=== PATIENT | male | born 1975 ===

== ENCOUNTER 2017-04-20 17:45 | Emergency (ER) | payer SELFPAY ==
[2017-04-20 17:55] VITALS: BP 148/90; PULSE 62; RESP 18; TEMP 97.5; O2SAT 98
--- NOTE | 2017-04-20 18:20 | ED PDOC ---
HPI: Male Pain Time Seen by Provider: 04/20/17 18:03 Chief Complaint (Nursing): Male Genitourinary Chief Complaint (Provider): Male Genitourinary History Per: Patient History/Exam Limitations: no limitations Onset/Duration Of Symptoms: Days (x4) Current Symptoms Are (Timing): Still Present Additional Complaint(s): Nigel King is a 42 year old male with a history of diabetes that presents to the ED with a chief complaint of burning dysuria that he has been experiencing for the past four days. Patient denies any hematuria or discharge, and states that he was recently checked for STDs and does not have any. Of Note: Patient also reports a sebaceous cyst on his left foot. Past Medical History Reviewed: Historical Data, Nursing Documentation, Vital Signs Vital Signs: Last Vital Signs Temp 97.5 F L 04/20/17 17:52 Pulse 62 04/20/17 17:52 Resp 18 04/20/17 17:52 BP 148/90 04/20/17 17:52 Pulse Ox 98 04/20/17 17:52 - Medical History PMH: Diabetes Denies: HIV, Chronic Kidney Disease - Family History Family History: States: Unknown Family Hx - Home Medications Home Medications: Ambulatory Orders Medication Instructions Recorded Gabapentin [Neurontin] 100 mg PO BID 30 Days 03/29/15 GlipiZIDE [Glucotrol] 5 mg PO BID 30 Days 03/29/15 Insulin Aspart [Novolog FLEXPEN] 2 unit SC ACTID #30 ml 03/29/15 oxyCODONE/Acetaminophen [Percocet 1 tab PO Q6 PRN #10 tab 08/15/16 5/325 mg Tab] Doxycycline Hyclate [Doryx] 100 mg PO BID #20 cap 04/20/17 - Allergies Allergies/Adverse Reactions: Allergies Allergy/AdvReac Type Severity Reaction Status Date / Time No Known Allergies Allergy Verified 04/20/17 17:52 Review of Systems Genitourinary Male: Positive for: Dysuria (burning, x4 days). Negative for: Hematuria, Penile Discharge Musculoskeletal: Positive for: Other (cyst present on left foot) Physical Exam - Reviewed Nursing Documentation Reviewed: Yes Vital Signs Reviewed: Yes - Physical Exam Appears: Positive for: Non-toxic, No Acute Distress Head Exam: Positive for: ATRAUMATIC, NORMOCEPHALIC Skin: Positive for: Normal Color, Warm Male Genital Exam: Positive for: other (Patient deferred genital exam) Extremity: Positive for: Normal ROM, Other (Nontender, firm, mobile mass to dorsal aspect of left foot over fifth metatarsal, consistent with Ganglian cyst. ). Negative for: Tenderness Neurologic/Psych: Positive for: Alert, Oriented. Negative for: Motor/Sensory Deficits - ECG O2 Sat by Pulse Oximetry: 98 (RA) Pulse Ox Interpretation: Normal Medical Decision Making Medical Decision Making: Impression: Burning Dysuria Plan: * Urine Dipstick * Reevaluation Discussed cyst present on patient's left foot, referred him to [employer] service supervisor for further workup. Pt declined GC/C again when offered. Dip (+) Nites and leuks. Pt educated on results, as well as potential causes. Started on Doxy PO. Scribe Attestation: Documented by Barbie Newby, acting as a scribe for Edwige Doan PA-C. Provider Scribe Attestation: All medical record entries made by the Scribe were at my direction and personally dictated by me. I have reviewed the chart and agree that the record accurately reflects my personal performance of the history, physical exam, medical decision making, and the department course for this patient. I have also personally directed, reviewed, and agree with the discharge instructions and disposition. Disposition - Clinical Impression Clinical Impression: Urinary tract infection - Patient ED Disposition Is Patient to be Admitted: No - Disposition Referrals: Jaiden Ladd MD [Staff Provider] - Disposition: Routine/Home Disposition Time: 18:59 Condition: STABLE Prescriptions: Doxycycline Hyclate [Doryx] 100 mg PO BID #20 cap Instructions: Urinary Tract Infection in Men (ED) Forms: [employer] (Russian) - POA Present On Arrival: None
== END 2017-04-20 20:03 | disposition home or self-care (01) ==
LOC: H.ER 17:45
DX: N39.0 Urinary tract infection, site not specified (principal); E11.9 Type 2 diabetes mellitus without complications; Z79.4 Long term (current) use of insulin

== ENCOUNTER 2017-06-20 10:51 | Day surgery (SDC) | payer SELFPAY ==
[2017-06-20 11:09] VITALS: BMI 29.2
[2017-06-20 11:39] LABS: HEMATOCRIT 41.4 % (35.0-51.0); MEAN CELL VOLUME 87.3 fl (80.0-94.0); MEAN CORPUSCULAR HEMOGLOBIN 29.9 pg (27.0-31.0); MEAN CORPUSCULAR HGB CONC 34.3 g/dL (33.0-37.0); RED CELL DISTRIBUTION WIDTH 13.2 % (11.5-14.5); WHITE BLOOD COUNT 5.6 K/uL (4.8-10.8)
[2017-06-20 11:54] LABS: PARTIAL THROMBOPLASTIN TIME 30.8 Seconds (25.6-37.1)
[2017-06-20] MEDS ORDERED: Absorbable Gelatin Sponge Size 12-7 ONE (12:45)
[2017-06-20] MEDS ORDERED: Lidocaine 1% Inj (20ml) ONE (12:45)
[2017-06-20] MEDS ORDERED: Midazolam 2 MG/2 ML VIAL ONE (13:08)
--- NOTE | 2017-06-20 13:10 | CP.SDSHP ---
Same Day Surgery H & P - History Proposed Procedure: US guided biopsy of liver Pre-Op Diagnosis: hepatic steatosis - Allergies Allergies: Allergies No Known Allergies Allergy (Verified 04/20/17 17:52) - Physical Exam Vital Signs: Vital Signs 06/20/17 06/20/17 11:36 11:44 Temperature 97.9 F Pulse Rate 54 L 54 L Respiratory 18 Rate Blood Pressure 132/87 O2 Sat by Pulse 96 Oximetry Mental Status: Alert & Oriented x3 Neuro: WNL Heart: WNL Lungs: WNL GI: WNL - {Optional Preform as Required} Abdomen: WNL - Impression Impression: Pt with hepatic steatosis refered for biopsy of liver. Plan US guided liver biopsy. Informed consent obtained. Pt. Evaluated Today:Candidate for Anesthesia & Procedure: Yes (ASA 2 Malampati 2) - Date & Time Date: 06/20/17 Time: 13:00 Short Stay Discharge - Short Stay Discharge Admitting Diagnosis/Reason for Visit: HEPATIC STEATOSIS, ABNORMAL LFT'S Referrals: Analia Payton MD [Primary Care Provider] -
[2017-06-20 13:18] VITALS: O2SAT 100
[2017-06-20] MEDS ORDERED: Lactated Ringer's 500 ML IV ONE (13:25)
[2017-06-20 13:34] VITALS: RESP 18
--- NOTE | 2017-06-20 14:27 | PCM.SURG1 ---
Surgeon's Initial Post Op Note - Surgeon's Notes Surgeon: Dewey Falcon MD Residential Program Director: NONE Type of Anesthesia: IV Sedation Pre-Operative Diagnosis: Hepatosteatosis Operative Findings: US showed an unremarkable left liver Post-Operative Diagnosis: Fatty liver Operation Performed: US guided core biopsy. Three 18-g core specimen obtained. Biopsy tract embolized with gelfoam. Specimen/Specimens Removed: 18 gauge core x 3 Estimated Blood Loss: EBL {In ML}: 1 Blood Products Given: N/A Drains Used: No Drains Post-Op Condition: Good Date of Surgery/Procedure: 06/20/17 Time of Surgery/Procedure: 14:00
[2017-06-20] MEDS ORDERED: Sodium Chloride 0.45% 1,000 ML IV SCH (14:30)
[2017-06-20 15:50] VITALS: BP 128/86; PULSE 52; TEMP 97.8
--- NOTE | 2017-06-22 15:20 | US ---
PROCEDURE: Date of procedure: 06/20/2017 Procedure: 1. Ultrasound-guided core liver biopsy, CPT 31960 2. Ultrasound guidance for biopsy, [address] Medications: The patient is sedated by the anesthesiologist. HISTORY: Abnormal LFTs TECHNIQUE: Following informed consent and procedure time-out, the patient was placed supine on bed and limited ultrasound showed a normal appearing left hepatic lobe. After patient abdomen was prepped and draped in the usual sterile fashion and the skin was anesthetized with 2% lidocaine, an 18 gauge core needle was advanced percutaneously under direct ultrasound guidance into the left hepatic lobe. Upon confirmation of needle position, three 18 gauge core specimens were obtained and sent for routine pathology. The biopsy to tract was then embolized with Gelfoam. A post biopsy ultrasound showed no hematoma. A dressing was applied. IMPRESSION: Ultrasound-guided core biopsy left hepatic lobe. There were no immediate complications.
== END 2017-06-20 15:50 | disposition home or self-care (01) ==
LOC: H.OPSURG 10:51
PROVIDERS: ATTEND Family Medicine Geriatric Medicine
DX: K76.89 Other specified diseases of liver (principal)
CPT/HCPCS: 36415; 47000; 82948; 85027; 85610; 85730; 88307; J2250; J3010; J7120

== ENCOUNTER 2017-12-20 10:01 | Day surgery (SDC) | payer SELFPAY ==
[2017-12-20] MEDS ORDERED: Lactated Ringer's 500 ML IV ONE (10:38)
[2017-12-20 10:51] VITALS: TEMP 97
[2017-12-20] MEDS ORDERED: Propofol 10 mg/ml Inj (20 ML) ONE (11:07)
[2017-12-20] MEDS ORDERED: Lidocaine PF 2% (5 ml) Inj (For Cardiac Arrhy) IV ONE (11:07)
[2017-12-20] MEDS ORDERED: Midazolam 2 MG/2 ML VIAL ONE (11:07)
[2017-12-20 12:07] VITALS: BP 112/73; PULSE 53; RESP 15; O2SAT 99
== END 2017-12-20 12:08 | disposition home or self-care (01) ==
LOC: H.ENDO 10:01
PROVIDERS: ATTEND Internal Medicine Gastroenterology
DX: K30 Functional dyspepsia (principal); E11.9 Type 2 diabetes mellitus without complications; K29.70 Gastritis, unspecified, without bleeding
CPT/HCPCS: 43239; 82948; 88305; J2250; J2704; J3010; J7120

== ENCOUNTER 2018-01-18 15:09 | Emergency (ER) | payer SELFPAY ==
[2018-01-18 15:09] VITALS: BMI 29.2
[2018-01-18 15:20] VITALS: O2SAT 98
[2018-01-18] MEDS ORDERED: Sodium Chloride 0.9% 1,000 ML IV STA (16:11)
[2018-01-18] MEDS ORDERED: Iohexol 240 (50 ml) PO ONE (16:14)
[2018-01-18] MEDS ORDERED: Iohexol 240 (50 ml) ONE (16:29)
--- NOTE | 2018-01-18 16:51 | ED PDOC ---
HPI: Abdomen Chief Complaint (Provider): abdominal pain History Per: Patient History/Exam Limitations: no limitations Onset/Duration Of Symptoms: Days (2) Outside of [place] travel?: No Current Symptoms Are (Timing): Still Present Severity: Moderate Pain Scale Rating Of: 7 Location Of Pain/Discomfort: Epigastric, Periumbilical Quality Of Discomfort: Aching, Cramping Associated Symptoms: Chills, Nausea, Vomiting. denies: Fever, Diarrhea, Constipation Exacerbating Factors: None Alleviating Factors: Other (passing gas, vomiting) Last Bowel Movement: Today (was normal) <Rehana Saavedra - Last Filed: 01/18/18 17:04> <Paulie Trinidad - Last Filed: 01/18/18 17:11> Time Seen by Provider: 01/18/18 15:45 Chief Complaint (Nursing): Abdominal Pain Additional Complaint(s): 42 yr old M presents to ED with complaint of abdominal pain and overall malaise for 2 days. PMHx includes NIDDM, gastritis, dyspepsia, hepatic steatosis and recent H. Pylori infection dx via upper endoscopy. Patient reports abdominal pain is located in periumbilical and epigastric area, 7/10, crampy, alleviated by passing gas and vomiting. Not exacerbated by anything. Associated symptoms are nausea, vomiting 3 times today-last episode after eating biscuits, tortillas and rice. He is on day 04/01 of antibiotics for H.Pylori infection. Denies diarrhea, constipation, syncope or weakness. 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 Reports normal urine and stool output. PMD: Dr. Johnson ([facility]) PMHx: NIDDM, gastritis, dyspepsia, hepatic steatosis and recent H. 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 Pylori day 04/01 Allergies: NKDA (Rehana Saavedra) Supervising Attending Note <Rehana Saavedra - Last Filed: 01/18/18 17:04> - Supervising Attending Note The Documented history was done by the: Physician Chinese Teacher The documented physical exam was done by the: Physician Chinese Teacher The documented procedures were done by the: Physician Chinese Teacher - Attestation: I have personally seen and examined this patient.: Yes I have fully participated in the care of the patient.: Yes I have reviewed all pertinent clinical information: Yes <Paulie Trinidad - Last Filed: 01/18/18 17:11> - Notes: Notes:: abd pain (Paulie Trinidad) Past Medical History - Medical History PMH: Diabetes Denies: HIV, Chronic Kidney Disease - Family History Family History: States: Unknown Family Hx - Social History Current smoker - smoking cessation education provided: No Ex-Smoker (has not smoked in the last 12 months): No Alcohol: None Drugs: Denies <Rehana Saavedra - Last Filed: 01/18/18 17:04> <Paulie Trinidad - Last Filed: 01/18/18 17:11> Vital Signs: Last Vital Signs Temp 97.5 F L 01/18/18 15:16 Pulse 84 01/18/18 15:16 Resp 16 01/18/18 15:16 BP 94/58 L 01/18/18 15:16 Pulse Ox 98 01/18/18 17:05 - Home Medications Home Medications: Ambulatory Orders Medication Instructions Recorded metFORMIN [glucOPHAGE] 500 mg PO BID 06/20/17 - Allergies Allergies/Adverse Reactions: Allergies Allergy/AdvReac Type Severity Reaction Status Date / Time No Known Allergies Allergy Verified 01/18/18 15:16 Review of Systems Constitutional: Positive for: Chills. Negative for: Fever Eyes: Negative for: Vision Change ENT: Negative for: Nose Congestion Cardiovascular: Negative for: Chest Pain, Palpitations, Light Headedness Respiratory: Negative for: Cough, Shortness of Breath Gastrointestinal: Positive for: Nausea, Vomiting, Abdominal Pain. Negative for : Diarrhea, Constipation Genitourinary Male: Negative for: Dysuria, Frequency Musculoskeletal: Negative for: Shoulder Pain, Arm Pain Skin: Negative for: Rash, Lesions Neurological: Negative for: Weakness, Confusion, Dizziness <Rehana Saavedra - Last Filed: 01/18/18 17:04> Physical Exam - Physical Exam Appears: Positive for: No Acute Distress Head Exam: Positive for: ATRAUMATIC, NORMOCEPHALIC Skin: Positive for: Normal Color, Warm, Dry Eye Exam: Positive for: EOMI, PERRL ENT: Negative for: Nasal Congestion, Pharyngeal Erythema Neck: Positive for: Painless ROM, Supple Cardiovascular/Chest: Positive for: Regular Rate, Rhythm. Negative for: Gallop , Murmur, Friction Rub Respiratory: Positive for: Normal Breath Sounds. Negative for: Rales, Rhonchi, Respiratory Distress Pulses-Carotid (L): 2+ Pulses-Carotid (R): 2+ Pulses-Dorsalis Pedis (L): 2+ Pulses-Dorsalis Pedis (R): 2+ Pulses-Post. Tibialis (L): 2+ Pulses-Post. Tibialis (R): 2+ Pulses-Radial (L): 2+ Pulses-Radial (R): 2+ Gastrointestinal/Abdominal: Positive for: Bowel Sounds (normal), Soft, Tenderness (mild tenderness to deep palpation in periumbilical and epigastric area) Back: Negative for: L CVA Tenderness, R CVA Tenderness Extremity: Positive for: Normal ROM. Negative for: Tenderness, Pedal Edema Neurologic/Psych: Positive for: Alert, golf ball cover treater II-XII, Oriented, Mood/Affect (full range) <Rehana Saavedra - Last Filed: 01/18/18 17:04> - Physical Exam Neck: Positive for: Painless ROM, Supple Respiratory: Positive for: Normal Breath Sounds Gastrointestinal/Abdominal: Positive for: Tenderness (periumbilical) <Paulie Trinidad - Last Filed: 01/18/18 17:11> - ECG O2 Sat by Pulse Oximetry: 98 <Rehana Saavedra - Last Filed: 01/18/18 17:04> <Paulie Trinidad - Last Filed: 01/18/18 17:11> - Progress ED Course And Treament: ABd/Pelvis CT with PO and IV contrast, CMP, lipase, coags, CBC, urinalysis, Pepcid 40mg IV, Toradol 15mg IV, NS 1L IV (Rehana Saavedra) 1710: Dr. Ayers to take over care. Fu on ct and labs. (Paulie Trinidad) Disposition <Rehana Saavedra - Last Filed: 01/18/18 17:04> - Disposition Disposition Time: 17:11 Patient Signed Over To: Jesus Alberto Ayers III <Paulie Trinidad - Last Filed: 01/18/18 17:11> - Clinical Impression Clinical Impression: Abdominal pain - Disposition Condition: STABLE
[2018-01-18 17:22] LABS: BASO % 0.2 % (0.0-2.0); EOS # 0.1 K/uL (0.0-0.7); EOS % 0.8 % (0.0-4.0); LYMPH # 1.1 K/uL (1.0-4.3); LYMPH % 14.8 % (20.0-40.0); MEAN CELL VOLUME 87.4 fl (80.0-94.0); MEAN CORPUSCULAR HEMOGLOBIN 29.7 pg (27.0-31.0); MEAN PLATELET VOLUME 8.2 fl (7.2-11.7); MONO # 0.4 K/uL (0.0-0.8); MONO % 5.9 % (0.0-10.0); NEUT # 5.9 K/uL (1.8-7.0); NEUT % 78.3 % (50.0-75.0); RBC 4.72 Mil/uL (4.40-5.90); RED CELL DISTRIBUTION WIDTH 12.5 % (11.5-14.5); WHITE BLOOD COUNT 7.6 K/uL (4.8-10.8)
[2018-01-18 17:34] LABS: ALB/GLOB RATIO 1.2 (1.0-2.1); ALBUMIN 3.9 g/dL (3.5-5.0); ALT/SGPT 85 U/L (21-72); AST/SGOT 49 U/L (17-59); BLOOD UREA NITROGEN 17 mg/dl (9-20); CALCIUM 8.3 mg/dL (8.4-10.2); GFR AFRICAN-AMERICAN > 60; GFR NON-AFRICAN AMERICAN > 60; LIPASE 106 U/L (23-300)
[2018-01-18 17:36] LABS: INR 1.1 (0.9-1.2); PROTHROMBIN TIME 12.2 Seconds (9.8-13.1)
[2018-01-18] MEDS ORDERED: Potassium Chloride 20 mEq ER Tab PO ONE ×2 (18:03→19:03)
[2018-01-18] MEDS ORDERED: Sodium Chloride 0.9% 100 ML ONE (18:28)
[2018-01-18] MEDS ORDERED: Iohexol 300 100 ML IJ ONE (18:28)
--- NOTE | 2018-01-18 18:56 | CT ---
PROCEDURE: CT Abdomen and Pelvis with contrast HISTORY: abd pain COMPARISON: None. TECHNIQUE: Contrast dose: 95 mL Omnipaque 300 Radiation dose: Total exam DLP = 497.88 mGy-cm. This CT exam was performed using one or more of the following dose reduction techniques: Automated exposure control, adjustment of the mA and/or kV according to patient size, and/or use of iterative reconstruction technique. FINDINGS: LOWER THORAX: Unremarkable. LIVER: Unremarkable. No gross lesion or ductal dilatation. GALLBLADDER AND BILE DUCTS: Unremarkable. PANCREAS: Unremarkable. No gross lesion or ductal dilatation. SPLEEN: Unremarkable. ADRENALS: Unremarkable. No mass. KIDNEYS AND URETERS: Two adjacent cysts in upper pole right kidney, 1.3 cm and 1.6 cm respectively. The smaller cyst has thin peripheral calcification. No other renal mass. No calculus or hydronephrosis. VASCULATURE: Unremarkable. No aortic aneurysm. BOWEL: Unremarkable. No obstruction. No gross mural thickening. APPENDIX: Normal appendix. PERITONEUM: Unremarkable. No free fluid. No free air. LYMPH NODES: Unremarkable. No enlarged lymph nodes. BLADDER: Unremarkable. REPRODUCTIVE: Unremarkable. BONES: No acute fracture. OTHER FINDINGS: None. IMPRESSION: No acute abnormality.
[2018-01-18 19:08] VITALS: BP 134/85; PULSE 88
--- NOTE | 2018-01-18 19:15 | ED PDOC ---
- Laboratory Results Result Diagrams: 01/18/18 16:40 01/18/18 16:40 - ECG O2 Sat by Pulse Oximetry: 98 Medical Decision Making Medical Decision Making: Accession No. : [id number] Patient Name / ID : MANUEL BUNCH / [id number] Exam Date : 01/18/2018 18:34:10 ( Approved ) Study Comment : Sex / Age : M / 42Y Creator : Satinder Ivy MD Dictator : Satinder Ivy MD Tube Worker : Echometer Engineer : Satinder Ivy MD Approver2 : Report Date : 01/18/2018 18:55:05 My Comment : PROCEDURE: CT Abdomen and Pelvis with contrast HISTORY: abd pain COMPARISON: None. TECHNIQUE: Contrast dose: 95 mL Omnipaque 300 Radiation dose: Total exam DLP = 497.88 mGy-cm. This CT exam was performed using one or more of the following dose reduction techniques: Automated exposure control, adjustment of the mA and/or kV according to patient size, and/or use of iterative reconstruction technique. FINDINGS: LOWER THORAX: Unremarkable. LIVER: Unremarkable. No gross lesion or ductal dilatation. GALLBLADDER AND BILE DUCTS: Unremarkable. PANCREAS: Unremarkable. No gross lesion or ductal dilatation. SPLEEN: Unremarkable. ADRENALS: Unremarkable. No mass. KIDNEYS AND URETERS: Two adjacent cysts in upper pole right kidney, 1.3 cm and 1.6 cm respectively. The smaller cyst has thin peripheral calcification. No other renal mass. No calculus or hydronephrosis. VASCULATURE: Unremarkable. No aortic aneurysm. BOWEL: Unremarkable. No obstruction. No gross mural thickening. APPENDIX: Normal appendix. PERITONEUM: Unremarkable. No free fluid. No free air. LYMPH NODES: Unremarkable. No enlarged lymph nodes. BLADDER: Unremarkable. REPRODUCTIVE: Unremarkable. BONES: No acute fracture. OTHER FINDINGS: None. IMPRESSION: No acute abnormality. Disposition - Clinical Impression Clinical Impression: Abdominal pain - POA Present On Arrival: None - Disposition Referrals: [facility] [Outside] Disposition: Routine/Home Disposition Time: 19:15 Condition: STABLE Additional Instructions: Followup with your doctor/clinic and GI specialist for further testing and treatment. Return to ER for any worse or new symptoms Prescriptions: Dicyclomine [Dicyclomine HCl] 10 mg PO Q8 PRN #12 cap PRN Reason: Gi Distress traMADol [Ultram] 50 mg PO TID PRN #12 tab PRN Reason: Pain, Moderate (4-7) Instructions: Acute Abdomen (Belly Pain) Forms: [employer] (Indonesian)
[2018-01-18 19:28] VITALS: RESP 18; TEMP 98.4
== END 2018-01-18 19:29 | disposition home or self-care (01) ==
LOC: H.ER 15:09
DX: R10.13 Epigastric pain (principal); E11.9 Type 2 diabetes mellitus without complications; Z79.84 Long term (current) use of oral hypoglycemic drugs
CPT/HCPCS: 74177; 80053; 83690; 85025; 85610; 85730; 96361; 96374; 96375; 99283; J1885; J7040; Q9966; Q9967

== ENCOUNTER 2019-01-10 21:40 | Emergency (ER) | payer SELFPAY ==
[2019-01-10 21:40] VITALS: BMI 29.2
[2019-01-10] MEDS ORDERED: Sodium Chloride 0.9% 1,000 ML IV STA (22:45)
--- NOTE | 2019-01-10 22:48 | ED PDOC ---
HPI:Nausea, Vomiting, Diarrhea Time Seen by Provider: 01/10/19 22:31 Chief Complaint (Nursing): GI Problem Chief Complaint (Provider): vomiting, diarrhea History Per: Patient History/Exam Limitations: no limitations Onset/Duration Of Symptoms: Days (1) Current Symptoms Are (Timing): Still Present Additional Complaint(s): 43 y/o male history of diabetes presents for evaluation of multiple episodes of vomiting and diarrhea x 1 day. Associated bodyaches, leg cramps. Denies fever, cough, congestion, chest pain, shortness of breath, palpitations, urinary symptoms, recent travel, sick contacts. Past Medical History Reviewed: Historical Data, Nursing Documentation, Vital Signs Vital Signs: Last Vital Signs Temp 98.5 F 01/10/19 22:20 Pulse 86 01/10/19 22:20 Resp 16 01/10/19 22:20 BP 121/81 01/10/19 22:20 Pulse Ox 97 01/10/19 22:20 - Medical History PMH: Diabetes Denies: HIV, Chronic Kidney Disease - Surgical History Surgical History: No Surg Hx - Family History Family History: States: Unknown Family Hx - Living Arrangements Living Arrangements: With Family - Home Medications Home Medications: Ambulatory Orders Medication Instructions Recorded metFORMIN [glucOPHAGE] 500 mg PO BID 06/20/17 Dicyclomine [Dicyclomine HCl] 10 mg PO Q8 PRN #12 cap 01/18/18 traMADol [Ultram] 50 mg PO TID PRN #12 tab 01/18/18 Famotidine [Pepcid] 20 mg PO BID #10 tab 01/11/19 Ondansetron [Zofran] 4 mg PO Q8H PRN #10 tab 01/11/19 - Allergies Allergies/Adverse Reactions: Allergies Allergy/AdvReac Type Severity Reaction Status Date / Time No Known Allergies Allergy Verified 01/10/19 22:20 Review of Systems ROS Statement: Except As Marked, All Systems Reviewed And Found Negative Gastrointestinal: Positive for: Nausea, Vomiting, Abdominal Pain, Diarrhea Musculoskeletal: Positive for: Leg Pain Physical Exam - Reviewed Nursing Documentation Reviewed: Yes Vital Signs Reviewed: Yes - Physical Exam Appears: Positive for: Well, Non-toxic, No Acute Distress Head Exam: Positive for: ATRAUMATIC, NORMAL INSPECTION, NORMOCEPHALIC Skin: Positive for: Normal Color Eye Exam: Positive for: Normal appearance ENT: Positive for: Normal ENT Inspection Cardiovascular/Chest: Positive for: Regular Rate, Rhythm Respiratory: Positive for: Normal Breath Sounds Gastrointestinal/Abdominal: Positive for: Bowel Sounds, Soft, Tenderness (epigastric) Back: Positive for: Normal Inspection Extremity: Positive for: Normal ROM Neurological/Psych: Positive for: Awake, Alert, Oriented (x3) - Laboratory Results Result Diagrams: 01/10/19 23:00 01/10/19 23:00 - ECG O2 Sat by Pulse Oximetry: 97 - Progress ED Course And Treament: -cbc -cmp -lipase -urinalysis -influenza -IV NS bolus -IV zofran -PO bentyl On re-eval, patient states he is feeling better. Tolerated PO Patient educated on findings, discharged with rx Pepcid, zofran, Advised increase fluid intake. [place] diet Follow up PMD within 2-3 days Return precautions given Disposition - Clinical Impression Clinical Impression: Gastroenteritis - Patient ED Disposition Is Patient to be Admitted: No Counseled Patient/Family Regarding: Studies Performed, Diagnosis, Need For Followup, Rx Given - Disposition Disposition: Routine/Home Disposition Time: 01:15 Condition: IMPROVED Prescriptions: Famotidine [Pepcid] 20 mg PO BID #10 tab Ondansetron [Zofran] 4 mg PO Q8H PRN #10 tab PRN Reason: Nausea/Vomiting Instructions: Viral Gastroenteritis Print Language: [place] CITIZ[place]
[2019-01-10 23:15] LABS: BASO % 0.4 % (0.0-2.0); EOS # 0.2 K/uL (0.0-0.7); EOS % 1.7 % (0.0-4.0); HEMOGLOBIN 15.6 g/dL (12.0-18.0); LYMPH # 1.8 K/uL (1.0-4.3); LYMPH % 19.8 % (20.0-40.0); MEAN CELL VOLUME 87.5 fl (80.0-94.0); MEAN CORPUSCULAR HEMOGLOBIN 30.1 pg (27.0-31.0); MEAN CORPUSCULAR HGB CONC 34.4 g/dL (33.0-37.0); MEAN PLATELET VOLUME 7.7 fl (7.2-11.7); MONO # 0.8 K/uL (0.0-0.8); NEUT # 6.2 K/uL (1.8-7.0); NEUT % 69.1 % (50.0-75.0); NRBC % 0.1 % (0.0-0.0); RBC 5.18 Mil/uL (4.40-5.90); RED CELL DISTRIBUTION WIDTH 12.8 % (11.5-14.5)
[2019-01-10 23:43] LABS: ALB/GLOB RATIO 1.3 (1.0-2.1); ALBUMIN 5.1 g/dL (3.5-5.0); ALT/SGPT 55 U/L (21-72); AST/SGOT 53 U/L (17-59); BLOOD UREA NITROGEN 18 mg/dl (9-20); CALCIUM 9.7 mg/dL (8.4-10.2); GFR NON-AFRICAN AMERICAN > 60; LIPASE 131 U/L (23-300)
[2019-01-11 00:01] LABS: SQUAMOUS EPITHIAL < 1 /hpf (0-5); URINE BILIRUBIN NEGATIVE (NEGATIVE); URINE BLOOD NEGATIVE (NEGATIVE); URINE CLARITY CLEAR (Clear); URINE COLOR STRAW (YELLOW); URINE GLUCOSE (UA) NEG (NEGATIVE); URINE LEUKOCYTE ESTERASE NEG Leu/uL (Negative); URINE PROTEIN NEGATIVE (NEGATIVE); URINE UROBILINOGEN 0.2-1.0 mg/dL (0.2-1.0)
[2019-01-11 01:38] VITALS: BP 128/60; PULSE 67; RESP 18; TEMP 98.6; O2SAT 98
== END 2019-01-11 02:30 | disposition home or self-care (01) ==
LOC: H.ER 21:40
DX: K52.9 Noninfective gastroenteritis and colitis, unspecified (principal); E11.9 Type 2 diabetes mellitus without complications; Z79.84 Long term (current) use of oral hypoglycemic drugs
CPT/HCPCS: 80053; 81003; 83690; 85025; 87804; 96361; 96374; 96375; 99283; J2405; J7030